=== PATIENT | male | born 1960 | race Caucasian/White ===

== ENCOUNTER → 2020-02-09 | Outpatient (CLI) | payer BC ==
--- NOTE | 2020-02-10 22:39 | XCELERA REPORT ---
[address] [address] Transthoracic Echocardiogram Report Name: CHU PERKISN Age: 59 yrs Gender: Male : 1960 Patient Status: Outpatient Patient Location: Study Date: 02/09/2020 09:25 AM Height: 65 in Weight: 160 lb BSA: 1.8 m2 Procedure: A two-dimensional transthoracic echocardiogram with color flow and Doppler was performed. Study Quality: Fair. Reason For Study: MURMUR History: MURMUR. Ordering Physician: DANNIELLE POWERS Performed By: Cora Arias Interpretation Summary The left ventricle is normal in size. There is normal left ventricular wall thickness. LV EF is is greater than 65% Left ventricular systolic function is normal. Doppler measurements suggest impaired left ventricular relaxation, which is associated with grade I/IV or mild diastolic dysfunction The left ventricular wall motion is normal. There is no thrombus. No ASD,VDF ,or PFO seen. The right ventricle is normal in size and function. The right atrium is normal. The left atrial size is normal. There is no evidence of mitral valve prolapse. There is no vegetation seen on the mitral valve. There is no mitral valve stenosis. There is a trace amount of mitral regurgitation There is no aortic valvular vegetation. There is no aortic valve stenosis There is no LVOT obstruction. There is a trace to mild amount of aortic regurgitation There is no tricuspid stenosis. There is a trace amount of tricuspid regurgitation Right ventricular systolic pressure is normal. RVSP is 23 mm of HG , with RA mean of 5. There is no pulmonic valvular stenosis. There is no pulmonic valvular regurgitation. The aortic root is normal size. The inferior vena cava appeared small and collapsed with respiration (RAP 0-5 mmHg) There is no pericardial effusion. MMode/2D Measurements & Calculations RVDd: 2.9 cm LVIDd: 4.5 cm FS: 35.5 % Ao root diam: 2.8 cm IVSd: 1.1 cm LVIDs: 2.9 cm EDV(Teich): 92.5 ml Ao root area: 6.4 cm2 LVPWd: 1.1 cm ESV(Teich): 32.4 ml ACS: 2.0 cm EF(Teich): 65.0 % LA dimension: 3.7 cm Doppler Measurements & Calculations MV E max jessica: MV P1/2t max jessica: Ao V2 max: AI max jessica: 68.1 cm/sec 69.1 cm/sec 102.7 cm/sec 494.1 cm/sec MV A max jessica: MV P1/2t: 99.3 msec Ao max PG: AI max P.6 mmHg 97.7 cm/sec 4.2 mmHg AI dec slope: MV E/A: 0.70 MVA(P1/2t): 2.2 cm2 MV dec slope: 216.0 cm/sec2 203.8 cm/sec2 AI P1/2t: 669.9 msec MV dec time: 0.34 sec LV V1 max PG: PA V2 max: TR max jessica: AV P1/2t-pr_phl: 4.0 mmHg 89.3 cm/sec 210.4 cm/sec 669.9 msec LV V1 max: PA max P.2 mmHg TR max P.7 cm/sec 17.7 mmHg MV P1/2t-pr_phl: 99.3 msec Left Ventricle The left ventricle is normal in size. There is normal left ventricular wall thickness. LV EF is is greater than 65%. Left ventricular systolic function is normal. Doppler measurements suggest impaired left ventricular relaxation, which is associated with grade I/IV or mild diastolic dysfunction. The left ventricular wall motion is normal. There is no thrombus. No ASD,VDF ,or PFO seen. Right Ventricle The right ventricle is normal in size and function. Atria The right atrium is normal. The left atrial size is normal. Mitral Valve There is no evidence of mitral valve prolapse. There is no vegetation seen on the mitral valve. There is no mitral valve stenosis. There is a trace amount of mitral regurgitation. Aortic Valve There is no aortic valvular vegetation. There is no aortic valve stenosis. There is no LVOT obstruction. There is a trace to mild amount of aortic regurgitation. Tricuspid Valve There is no tricuspid stenosis. There is a trace amount of tricuspid regurgitation. Right ventricular systolic pressure is normal. RVSP is 23 mm of HG , with RA mean of 5. Pulmonic Valve There is no pulmonic valvular stenosis. There is no pulmonic valvular regurgitation. Great Vessels The aortic root is normal size. The inferior vena cava appeared small and collapsed with respiration (RAP 0-5 mmHg). Effusions There is no pericardial effusion. : DANNIELLE POWERS, Dannielle
== END ==
LOC: SP 09:07
PROVIDERS: ATTEND Specialist
DX: R01.1 Cardiac murmur, unspecified (principal); I10 Essential (primary) hypertension
CPT/HCPCS: 93306